=== PATIENT | male | born 1960 | race Caucasian/White ===

== ENCOUNTER 2018-04-17 13:43 | Inpatient (IN) | payer MEDICAID ==
[~2018-04-17] VITALS: Ht 172.7 cm; Wt 146.7 kg
[2018-04-17] MEDS ORDERED: ONDANSETRON HCL 4 MG/2 ML VIAL IV ONE (14:30)
[2018-04-17] MEDS ORDERED: MORPHINE SULFATE 4 MG/ML SYR/VIAL IV ONE (14:30)
[2018-04-17] MEDS ORDERED: AZITHROMYCIN 500MG/ 250ML 250 ML IV ONE (16:30)
[2018-04-17] MEDS ORDERED: cefTRIAXone 1GM/10ml IVPUSH 10 ML IV ONE (16:30)
[2018-04-17 16:38] LABS: Alanine Aminotransferase 23 U/L (16-61); Albumin 3.1 g/dL (3.4-5.0); Anion Gap 7 (5-15); Aspartate Aminotransferase 28 U/L (15-37); BUN/Creatinine Ratio 22.6; Basophils # (auto) 0 uL; Blood Urea Nitrogen 26 mg/dL (7-18); Calcium 8.2 mg/dL (8.5-10.1); Carbon Dioxide 28 mmol/L (21-32); Chloride 105 mmol/L (98-107); GFR African American 84 mL/min; GFR Non-African American 69 mL/min; Glucose 81 mg/dL (74-106); Hemoglobin 11.2 g/dL (13.5-17.5); Lymphocytes # (auto) 0.5 uL; Mean Corpuscular Hemoglobin 23.3 pg (28.0-32.0); Monocytes # (auto) 0.5 uL; Neutrophils # (auto) 2.4 uL; Potassium 3.7 mmol/L (3.5-5.1); Sodium 140 mmol/L (136-145); White Blood Cell 3.5 10^3/uL (4.4-10.8)
[2018-04-17 16:40] LABS: Basophils % (auto) 1.1 % (0.0-2.0); Eosinophils # (auto) 0.1 uL; Eosinophils % (auto) 3.7 % (0.0-7.0); Hematocrit 35.3 % (41.0-53.0); Mean Corpuscular Hgb Conc. 31.6 g/dL (32.0-36.0); Mean Corpuscular Volume 73.5 fL (80.0-100.0); Monocytes % (auto) 13.9 % (0.0-12.0); Neutrophils % (auto) 68.3 % (37.0-80.0); Platelet Count (auto) 177 10^3/uL (140-450)
[2018-04-17 16:41] LABS: Alkaline Phosphatase 252 U/L (45-117); Bilirubin, Total 1.3 mg/dL (0.2-1.0)
[2018-04-17] MEDS ORDERED: ONDANSETRON HCL 4 MG/2 ML VIAL IV PRN (16:45)
[2018-04-17] MEDS ORDERED: LACTULOSE 20Gm/30ML SOLN PO PRN (16:45)
[2018-04-17] MEDS ORDERED: LORazepam 0.5 MG TAB PO PRN (16:45)
[2018-04-17] MEDS ORDERED: MORPHINE SULFATE 4 MG/ML SYR/VIAL IV PRN ×2 (16:45)
[2018-04-17] MEDS ORDERED: NITROGLYCERIN 0.4 MG SL TAB SL PRN (16:45)
[2018-04-17] MEDS ORDERED: ACETAMINOPHEN 500 MG TAB PO PRN (16:45)
[2018-04-17 16:55] LABS: Red Cell Distribution Width 21.3 % (11.8-14.3)
[2018-04-17 17:16] LABS: INR 1.19 (0.9-1.15); Partial Thromboplastin Time 28.2 sec (23.78-33.04); Prothrombin Time 12.6 sec (9.27-12.13)
[2018-04-17] MEDS ORDERED: IPRATROPIUM BROM 0.5 MG/2.5ML INH SOL NEB SCH (18:00)
[2018-04-17] MEDS ORDERED: ALBUTEROL SULF 2.5 MG/0.5ML(0.5%) NEB SOLN NEB SCH (18:00)
[2018-04-17 19:50] VITALS: BP 122/74
[2018-04-17 21:00] VITALS: BP 110/67
[2018-04-17] MEDS ORDERED: POTA10TA51 PO (21:09)
[2018-04-17] MEDS ORDERED: FURO40TA PO (21:09)
[2018-04-17 21:23] VITALS: BP 106/52
[2018-04-17] MEDS: FUROSEMIDE 40 MG/4 ML VIAL IV SCH (21:37)
[2018-04-17] MEDS: CARVEDILOL 3.125 MG TAB PO SCH (21:38)
[2018-04-17] MEDS: CLINDAMYCIN 600MG IV 50 ML IV SCH (21:38)
[2018-04-17] MEDS: ENOXAPARIN SOD 120 MG/0.8 ML SYRINGE SC SCH (21:38)
[2018-04-17] MEDS: SODIUM CHLOR 0.9% PF (SALINE LOCK) 10ML VIAL/SYR IV SCH (21:38)
[2018-04-17] MEDS ORDERED: SODIUM CHLOR 0.9% PF (SALINE LOCK) 10ML VIAL/SYR IV SCH (22:00)
[2018-04-17] MEDS: HYDROcodone-ACET 5/325MG TAB PO PRN (23:00)
[2018-04-18] MEDS ORDERED: INFLUENZA QUAD 2018-2019 0.5 ML SYRG IM ONE (01:45)
[2018-04-18] MEDS: ALBUTEROL SULF 2.5 MG/0.5ML(0.5%) NEB SOLN NEB PRN ×2 (04:13→10:05)
[2018-04-18 05:02] VITALS: BP 116/68
[2018-04-18] MEDS: CLINDAMYCIN 600MG IV 50 ML IV SCH ×3 (05:41→21:38)
[2018-04-18] MEDS: FUROSEMIDE 40 MG/4 ML VIAL IV SCH ×2 (05:42→17:49)
[2018-04-18] MEDS: SODIUM CHLOR 0.9% PF (SALINE LOCK) 10ML VIAL/SYR IV SCH ×3 (05:42→21:39)
[2018-04-18] MEDS: HYDROcodone-ACET 5/325MG TAB PO PRN ×3 (05:42→20:04)
[2018-04-18 07:16] LABS: Cholesterol 73 mg/dL (< 200); HDL Cholesterol 43 mg/dL (40-59); LDL Cholesterol 38 mg/dL (< 100); Triglycerides 36 mg/dL (< 150)
[2018-04-18 08:00] VITALS: BP 103/63
[2018-04-18 09:06] VITALS: BP 103/63
[2018-04-18] MEDS: ENOXAPARIN SOD 120 MG/0.8 ML SYRINGE SC SCH ×2 (09:32→21:39)
[2018-04-18] MEDS: LEVOFLOXACIN 500MG 100 ML IV SCH (09:32)
[2018-04-18] MEDS: ASPirin 81 mg TAB PO SCH (09:33)
[2018-04-18] MEDS: PANTOPRAZOLE 40 MG TAB PO SCH (09:33)
[2018-04-18] MEDS: SPIRONOLACTONE 25 MG TAB PO SCH (09:33)
[2018-04-18] MEDS: CARVEDILOL 3.125 MG TAB PO SCH ×2 (09:34→21:39)
[2018-04-18] MEDS: ENALAPRIL MALEATE 2.5 MG TAB PO SCH (09:35)
[2018-04-18] MEDS: POTASSIUM CHL 20 Meq TABLET PO SCH (09:35)
[2018-04-18 09:58] LABS: Urine WBC None Seen /hpf (0 - 3)
[2018-04-18] MEDS ORDERED: FUROSEMIDE 40 MG/4 ML VIAL IV SCH (10:00)
[2018-04-18] MEDS ORDERED: ENOXAPARIN SOD 40 MG/0.4 ML SYRINGE SC SCH (10:00)
[2018-04-18 10:16] LABS: Urine Bacteria FEW /hpf (None Seen); Urine Blood Negative /uL (Negative); Urine Hyaline Cast MANY /lpf (0 - 2); Urine Mucus FEW (None Seen); Urine Specific Gravity 1.008 (1.001-1.035)
[2018-04-18] MEDS ORDERED: OPTISON 3ml Vial for INJ IV ONE (10:52)
[2018-04-18 13:18] VITALS: BP 110/67
[2018-04-18] MEDS ORDERED: NICOTINE 21MG/24 HR TOPICAL PATCH TD ONE (16:00)
[2018-04-18 17:13] VITALS: BP 97/56
[2018-04-18] MEDS: ASCORBIC ACID 500 MG TAB PO SCH (21:39)
[2018-04-18 22:00] VITALS: BP 114/74
[2018-04-19] MEDS: TEMAZEPAM 15 MG CAP PO PRN (01:00)
[2018-04-19 05:00] VITALS: BP 115/68
[2018-04-19] MEDS: CLINDAMYCIN 600MG IV 50 ML IV SCH ×3 (05:42→22:21)
[2018-04-19] MEDS: FUROSEMIDE 40 MG/4 ML VIAL IV SCH ×2 (05:42→18:06)
[2018-04-19] MEDS: SODIUM CHLOR 0.9% PF (SALINE LOCK) 10ML VIAL/SYR IV SCH ×3 (05:42→22:21)
[2018-04-19 07:08] LABS: Eosinophils # (auto) 0.2 uL; Hematocrit 34.1 % (41.0-53.0); Monocytes # (auto) 0.6 uL; Neutrophils # (auto) 1.7 uL
[2018-04-19 07:16] LABS: Basophils # (auto) 0.1 uL; Basophils % (auto) 1.7 % (0.0-2.0); Eosinophils % (auto) 6.3 % (0.0-7.0); Hemoglobin 10.7 g/dL (13.5-17.5); Lymphocytes # (auto) 0.6 uL; Lymphocytes % (auto) 18.1 % (10.0-50.0); Mean Corpuscular Hemoglobin 22.9 pg (28.0-32.0); Mean Corpuscular Hgb Conc. 31.3 g/dL (32.0-36.0); Mean Corpuscular Volume 73.2 fL (80.0-100.0); Neutrophils % (auto) 54.5 % (37.0-80.0); Nucleated Red Blood Cells % 0.4 %; Platelet Count (auto) 163 10^3/uL (140-450); Red Blood Cells 4.65 10^6/uL (4.5-5.90); White Blood Cell 3.1 10^3/uL (4.4-10.8)
[2018-04-19 07:20] LABS: Albumin 2.9 g/dL (3.4-5.0); BUN/Creatinine Ratio 22.7; Calcium 7.9 mg/dL (8.5-10.1); Magnesium 2.2 mg/dL (1.6-2.6); Potassium 4.1 mmol/L (3.5-5.1)
[2018-04-19 07:23] LABS: Total Protein 7.7 g/dL (6.4-8.2)
[2018-04-19 07:25] LABS: Monocytes % (auto) 19.4 % (0.0-12.0); Red Cell Distribution Width 21.4 % (11.8-14.3)
[2018-04-19 08:00] VITALS: BP 110/72
[2018-04-19 08:14] VITALS: BP 110/72
[2018-04-19] MEDS: PANTOPRAZOLE 40 MG TAB PO SCH (10:06)
[2018-04-19] MEDS: CARVEDILOL 3.125 MG TAB PO SCH ×2 (10:12→22:00)
[2018-04-19] MEDS: ASPirin 81 mg TAB PO SCH (10:12)
[2018-04-19] MEDS: ENALAPRIL MALEATE 2.5 MG TAB PO SCH (10:13)
[2018-04-19] MEDS: MULTIPLE VITAMINS W/ MINERALS TAB PO SCH (10:13)
[2018-04-19] MEDS: ASCORBIC ACID 500 MG TAB PO SCH ×2 (10:13→22:21)
[2018-04-19] MEDS: ENOXAPARIN SOD 120 MG/0.8 ML SYRINGE SC SCH ×2 (10:14→22:22)
[2018-04-19] MEDS: NICOTINE 21MG/24 HR TOPICAL PATCH TD SCH (10:15)
[2018-04-19] MEDS: POTASSIUM CHL 20 Meq TABLET PO SCH (10:18)
[2018-04-19] MEDS: SPIRONOLACTONE 25 MG TAB PO SCH (10:18)
[2018-04-19] MEDS: LEVOFLOXACIN 500MG 100 ML IV SCH (10:22)
[2018-04-19] MEDS: ALBUTEROL SULF 2.5 MG/0.5ML(0.5%) NEB SOLN NEB PRN ×3 (10:49→22:30)
[2018-04-19 12:06] VITALS: BP 107/71
[2018-04-19 16:38] VITALS: BP 100/56
[2018-04-19] MEDS ORDERED: IOHEXOL 350 MG/ML 100ML IJ ONE (16:44)
[2018-04-19] MEDS: HYDROcodone-ACET 5/325MG TAB PO PRN (19:59)
[2018-04-19 21:43] VITALS: BP 89/63
[2018-04-20] MEDS: TEMAZEPAM 15 MG CAP PO PRN (01:39)
[2018-04-20] MEDS: ALBUTEROL SULF 2.5 MG/0.5ML(0.5%) NEB SOLN NEB PRN ×3 (03:41→19:26)
[2018-04-20 04:38] VITALS: BP 97/51
[2018-04-20] MEDS: CLINDAMYCIN 600MG IV 50 ML IV SCH ×3 (06:16→22:25)
[2018-04-20] MEDS: SODIUM CHLOR 0.9% PF (SALINE LOCK) 10ML VIAL/SYR IV SCH ×3 (06:16→22:26)
[2018-04-20 08:00] VITALS: BP 102/64
[2018-04-20] MEDS: FUROSEMIDE 40 MG/4 ML VIAL IV SCH ×2 (08:08→18:32)
[2018-04-20 08:53] VITALS: BP 102/64
[2018-04-20] MEDS: LEVOFLOXACIN 500MG 100 ML IV SCH (10:23)
[2018-04-20] MEDS: SPIRONOLACTONE 25 MG TAB PO SCH (10:23)
[2018-04-20] MEDS: ASPirin 81 mg TAB PO SCH (10:23)
[2018-04-20] MEDS: CARVEDILOL 3.125 MG TAB PO SCH ×2 (10:24→22:00)
[2018-04-20] MEDS: MULTIPLE VITAMINS W/ MINERALS TAB PO SCH (10:24)
[2018-04-20] MEDS: POTASSIUM CHL 20 Meq TABLET PO SCH (10:24)
[2018-04-20] MEDS: PANTOPRAZOLE 40 MG TAB PO SCH (10:25)
[2018-04-20] MEDS: ENALAPRIL MALEATE 2.5 MG TAB PO SCH (10:25)
[2018-04-20] MEDS: ENOXAPARIN SOD 120 MG/0.8 ML SYRINGE SC SCH ×2 (10:25→22:27)
[2018-04-20] MEDS: ASCORBIC ACID 500 MG TAB PO SCH ×2 (10:25→22:27)
[2018-04-20] MEDS: NICOTINE 21MG/24 HR TOPICAL PATCH TD SCH (10:26)
[2018-04-20] MEDS: HYDROcodone-ACET 5/325MG TAB PO PRN ×2 (10:27→20:53)
[2018-04-20 13:00] VITALS: BP 91/57
[2018-04-20 17:00] VITALS: BP 105/73
[2018-04-20 21:42] VITALS: BP 108/60
[2018-04-20] MEDS: DAKINS QUARTER STR 0.125% (NaHypochlorite) 473 ML TOPICAL SOL TOP SCH (22:00)
[2018-04-20] MEDS: CLOTRIMAZOLE 1 % CREAM 15GM TOP SCH (22:27)
[2018-04-21] MEDS: ALBUTEROL SULF 2.5 MG/0.5ML(0.5%) NEB SOLN NEB PRN ×3 (00:06→20:26)
[2018-04-21 05:00] VITALS: BP 105/59
[2018-04-21] MEDS: CLINDAMYCIN 600MG IV 50 ML IV SCH ×3 (06:13→23:23)
[2018-04-21] MEDS: FUROSEMIDE 40 MG/4 ML VIAL IV SCH (06:14)
[2018-04-21] MEDS: SODIUM CHLOR 0.9% PF (SALINE LOCK) 10ML VIAL/SYR IV SCH ×3 (06:14→23:23)
[2018-04-21 08:00] VITALS: BP 119/69
[2018-04-21] MEDS ORDERED: ADENOSINE 128 MG in GIVE UN-DILUTED 0 ML IV ONE (08:15)
[2018-04-21 08:46] VITALS: BP 119/69
[2018-04-21] MEDS: NICOTINE 21MG/24 HR TOPICAL PATCH TD SCH (12:12)
[2018-04-21] MEDS: LEVOFLOXACIN 500MG 100 ML IV SCH (12:12)
[2018-04-21] MEDS: ASPirin 81 mg TAB PO SCH (12:13)
[2018-04-21] MEDS: MULTIPLE VITAMINS W/ MINERALS TAB PO SCH (12:13)
[2018-04-21] MEDS: PANTOPRAZOLE 40 MG TAB PO SCH (12:13)
[2018-04-21] MEDS: ASCORBIC ACID 500 MG TAB PO SCH ×2 (12:14→23:23)
[2018-04-21] MEDS: POTASSIUM CHL 20 Meq TABLET PO SCH (12:14)
[2018-04-21 15:14] LABS: BUN/Creatinine Ratio 25.6; Calcium 7.7 mg/dL (8.5-10.1); Potassium 4.3 mmol/L (3.5-5.1)
[2018-04-21 16:31] VITALS: BP 101/60
[2018-04-21] MEDS: FUROSEMIDE 40 MG TAB PO SCH (18:00)
[2018-04-21] MEDS: POVIDONE IODINE 10 % TOPICAL OINT 30GM TOP SCH (18:50)
[2018-04-21] MEDS: DAKINS QUARTER STR 0.125% (NaHypochlorite) 473 ML TOPICAL SOL TOP SCH ×2 (18:51→23:24)
[2018-04-21] MEDS: CLOTRIMAZOLE 1 % CREAM 15GM TOP SCH ×2 (18:51→23:24)
[2018-04-21 22:00] VITALS: BP 110/57
[2018-04-21] MEDS: TEMAZEPAM 15 MG CAP PO PRN (23:33)
[2018-04-22] MEDS: ALBUTEROL SULF 2.5 MG/0.5ML(0.5%) NEB SOLN NEB PRN ×3 (02:13→22:14)
[2018-04-22] MEDS: HYDROcodone-ACET 5/325MG TAB PO PRN ×3 (04:47→20:23)
[2018-04-22 05:35] VITALS: BP 122/67
[2018-04-22] MEDS: SODIUM CHLOR 0.9% PF (SALINE LOCK) 10ML VIAL/SYR IV SCH ×3 (05:58→21:31)
[2018-04-22] MEDS: CLINDAMYCIN 600MG IV 50 ML IV SCH (05:58)
[2018-04-22] MEDS: FUROSEMIDE 40 MG TAB PO SCH ×2 (05:59→18:06)
[2018-04-22 06:12] LABS: Mean Corpuscular Hemoglobin 23.4 pg (28.0-32.0); White Blood Cell 3.6 10^3/uL (4.4-10.8)
[2018-04-22 06:14] LABS: Hematocrit 30.8 % (41.0-53.0); Hemoglobin 9.9 g/dL (13.5-17.5); Mean Corpuscular Volume 73.3 fL (80.0-100.0); Platelet Count (auto) 155 10^3/uL (140-450); Red Blood Cells 4.21 10^6/uL (4.5-5.90)
[2018-04-22 06:20] LABS: Red Cell Distribution Width 21.2 % (11.8-14.3)
[2018-04-22 06:22] LABS: Band Neutrophils % (manual) 0; Basophils % (manual) 0 (0.0-2.0); Blast Cells 0; Metamyelocytes % 0; Myelocytes % 0; Promyelocytes % 0; Reactive Lymphocytes 0
[2018-04-22 06:25] LABS: BUN/Creatinine Ratio 26.9; Calcium 8.3 mg/dL (8.5-10.1); Potassium 4.2 mmol/L (3.5-5.1)
[2018-04-22 06:55] LABS: Eosinophils % (manual) 3 (0-7); Lymphocytes % (manual) 11 (10.0-50.0); Monocytes % (manual) 15 (0-12)
[2018-04-22] MEDS ORDERED: IOHEXOL 350 MG/ML 100ML IJ ONE (07:56)
[2018-04-22 08:29] VITALS: BP 110/66
[2018-04-22] MEDS: ASCORBIC ACID 500 MG TAB PO SCH ×2 (10:00→21:34)
[2018-04-22] MEDS: MULTIPLE VITAMINS W/ MINERALS TAB PO SCH (10:37)
[2018-04-22] MEDS: POTASSIUM CHL 20 Meq TABLET PO SCH (10:37)
[2018-04-22] MEDS: LEVOFLOXACIN 500MG 100 ML IV SCH (10:37)
[2018-04-22] MEDS: ENOXAPARIN SOD 40 MG/0.4 ML SYRINGE SC SCH (10:37)
[2018-04-22] MEDS: NICOTINE 21MG/24 HR TOPICAL PATCH TD SCH (10:37)
[2018-04-22] MEDS: PANTOPRAZOLE 40 MG TAB PO SCH (10:37)
[2018-04-22] MEDS: ASPirin 81 mg TAB PO SCH (10:38)
[2018-04-22] MEDS: DAKINS QUARTER STR 0.125% (NaHypochlorite) 473 ML TOPICAL SOL TOP SCH ×2 (10:38→21:35)
[2018-04-22] MEDS: POVIDONE IODINE 10 % TOPICAL OINT 30GM TOP SCH (10:38)
[2018-04-22] MEDS: CLOTRIMAZOLE 1 % CREAM 15GM TOP SCH ×2 (10:38→21:35)
[2018-04-22 12:49] VITALS: BP 104/61
[2018-04-22] MEDS: CLINDAMYCIN HCL 150 MG CAP PO SCH ×2 (14:42→21:34)
[2018-04-22 15:44] LABS: % Iron Saturation 13.5 % (20-55)
[2018-04-22 16:35] VITALS: BP 102/60
[2018-04-22] MEDS: TEMAZEPAM 15 MG CAP PO PRN (21:37)
[2018-04-22 22:00] VITALS: BP 109/72
[2018-04-23 05:00] VITALS: BP 117/72
[2018-04-23] MEDS: SODIUM CHLOR 0.9% PF (SALINE LOCK) 10ML VIAL/SYR IV SCH ×3 (05:24→22:02)
[2018-04-23] MEDS: CLINDAMYCIN HCL 150 MG CAP PO SCH ×2 (05:25→14:00)
[2018-04-23] MEDS: FUROSEMIDE 40 MG TAB PO SCH ×2 (05:25→17:31)
[2018-04-23 07:09] LABS: BUN/Creatinine Ratio 26.5; Calcium 8.2 mg/dL (8.5-10.1)
[2018-04-23 07:20] LABS: Basophils # (auto) 0 uL; Basophils % (auto) 0.9 % (0.0-2.0); Eosinophils # (auto) 0.4 uL; Eosinophils % (auto) 9.4 % (0.0-7.0); Hematocrit 31.1 % (41.0-53.0); Hemoglobin 9.7 g/dL (13.5-17.5); Lymphocytes # (auto) 0.4 uL; Lymphocytes % (auto) 11.2 % (10.0-50.0); Mean Corpuscular Hemoglobin 22.7 pg (28.0-32.0); Mean Corpuscular Hgb Conc. 31.1 g/dL (32.0-36.0); Monocytes # (auto) 0.6 uL; Monocytes % (auto) 15.7 % (0.0-12.0); Neutrophils # (auto) 2.4 uL; Neutrophils % (auto) 62.8 % (37.0-80.0); Nucleated Red Blood Cells % 0.2 %; Platelet Count (auto) 145 10^3/uL (140-450); Red Blood Cells 4.26 10^6/uL (4.5-5.90); White Blood Cell 3.9 10^3/uL (4.4-10.8)
[2018-04-23] MEDS ORDERED: LIDOCAINE 2%HCL (LOCAL ANESTH.) INJ 10ml MDV ONE (07:30)
[2018-04-23] MEDS ORDERED: IOHEXOL 350 MG/ML 100ML IJ ONE (07:30)
[2018-04-23 07:46] LABS: Red Cell Distribution Width 21.5 % (11.8-14.3)
[2018-04-23] MEDS ORDERED: ANGIOMAX 250 MG VIAL IV ONE ×2 (08:32→08:50)
[2018-04-23] MEDS ORDERED: SODIUM CHL 0.9% 50 ML ONE ×2 (08:33→08:51)
[2018-04-23] MEDS ORDERED: MIDAZOLAM HCL 1MG/1ML-2 ML VIAL ONE (08:33)
[2018-04-23] MEDS ORDERED: fentaNYL CITRATE 100 MCG/2 ML VL ONE (08:33)
[2018-04-23] MEDS ORDERED: ASPirin 325 MG TAB ONE (09:12)
[2018-04-23] MEDS ORDERED: CLOPIDOGREL 300 MG TAB ONE (09:12)
[2018-04-23] MEDS: ENOXAPARIN SOD 40 MG/0.4 ML SYRINGE SC SCH (10:00)
[2018-04-23] MEDS: CLOTRIMAZOLE 1 % CREAM 15GM TOP SCH ×2 (10:00→22:02)
[2018-04-23] MEDS: NICOTINE 21MG/24 HR TOPICAL PATCH TD SCH (10:00)
[2018-04-23] MEDS: DAKINS QUARTER STR 0.125% (NaHypochlorite) 473 ML TOPICAL SOL TOP SCH ×2 (10:00→22:00)
[2018-04-23] MEDS: PANTOPRAZOLE 40 MG TAB PO SCH (10:00)
[2018-04-23] MEDS: MULTIPLE VITAMINS W/ MINERALS TAB PO SCH (10:00)
[2018-04-23] MEDS: ASCORBIC ACID 500 MG TAB PO SCH ×2 (10:00→22:05)
[2018-04-23] MEDS: POVIDONE IODINE 10 % TOPICAL OINT 30GM TOP SCH (10:00)
[2018-04-23] MEDS: LEVOFLOXACIN 500 MG TAB PO SCH (10:00)
[2018-04-23] MEDS: POTASSIUM CHL 20 Meq TABLET PO SCH (10:00)
[2018-04-23] MEDS: ASPirin 81 mg TAB PO SCH (10:00)
[2018-04-23] MEDS: HYDROcodone-ACET 5/325MG TAB PO PRN ×2 (10:55→16:48)
[2018-04-23] MEDS ORDERED: GELATIN 1 SPONGE SIZE 100 TOP ONE (11:20)
[2018-04-23] MEDS ORDERED: CLOP75TA28 PO (13:15)
[2018-04-23] MEDS ORDERED: ASP81EC PO (13:15)
[2018-04-23] MEDS ORDERED: AMPI500C8 PO (13:15)
[2018-04-23] MEDS ORDERED: NIC21P TOP (13:15)
[2018-04-23] MEDS ORDERED: PANT40T PO (13:15)
[2018-04-23 16:37] VITALS: BP 110/72
[2018-04-23] MEDS: AMPICILLIN 500 MG CAP PO SCH ×2 (17:31→23:49)
[2018-04-23 22:00] VITALS: BP 104/57
[2018-04-23] MEDS: TEMAZEPAM 15 MG CAP PO PRN (22:05)
[2018-04-23] MEDS: ALBUTEROL SULF 2.5 MG/0.5ML(0.5%) NEB SOLN NEB PRN (22:20)
[2018-04-24] VITALS (7 sets, daily range): BP systolic 92–115; BP diastolic 52–72
[2018-04-24] MEDS: AMPICILLIN 500 MG CAP PO SCH (05:13)
[2018-04-24] MEDS: FUROSEMIDE 40 MG TAB PO SCH ×2 (05:13→17:23)
[2018-04-24] MEDS: SODIUM CHLOR 0.9% PF (SALINE LOCK) 10ML VIAL/SYR IV SCH ×3 (05:13→22:23)
[2018-04-24] MEDS: HYDROcodone-ACET 5/325MG TAB PO PRN ×2 (05:32→18:05)
[2018-04-24 07:31] LABS: Basophils # (auto) 0 uL; Hemoglobin 9.3 g/dL (13.5-17.5); White Blood Cell 3.7 10^3/uL (4.4-10.8)
[2018-04-24 07:34] LABS: Basophils % (auto) 0.7 % (0.0-2.0); Eosinophils # (auto) 0.3 uL; Eosinophils % (auto) 7.1 % (0.0-7.0); Hematocrit 29.7 % (41.0-53.0); Lymphocytes # (auto) 0.4 uL; Lymphocytes % (auto) 9.6 % (10.0-50.0); Mean Corpuscular Hemoglobin 22.8 pg (28.0-32.0); Mean Corpuscular Hgb Conc. 31.4 g/dL (32.0-36.0); Mean Corpuscular Volume 72.8 fL (80.0-100.0); Monocytes # (auto) 0.6 uL; Monocytes % (auto) 15.3 % (0.0-12.0); Neutrophils # (auto) 2.5 uL; Neutrophils % (auto) 67.3 % (37.0-80.0); Platelet Count (auto) 134 10^3/uL (140-450); Red Blood Cells 4.08 10^6/uL (4.5-5.90)
[2018-04-24 07:36] LABS: Red Cell Distribution Width 21.2 % (11.8-14.3)
[2018-04-24 07:47] LABS: Calcium 7.9 mg/dL (8.5-10.1); Potassium 4.1 mmol/L (3.5-5.1)
[2018-04-24 07:49] LABS: BUN/Creatinine Ratio 25.5
[2018-04-24] MEDS: DAKINS QUARTER STR 0.125% (NaHypochlorite) 473 ML TOPICAL SOL TOP SCH ×2 (10:00→22:00)
[2018-04-24] MEDS: ENOXAPARIN SOD 40 MG/0.4 ML SYRINGE SC SCH (10:00)
[2018-04-24] MEDS: CLOPIDOGREL BISULFATE 75 MG TAB PO SCH (10:00)
[2018-04-24] MEDS: CLOTRIMAZOLE 1 % CREAM 15GM TOP SCH ×2 (10:00→22:24)
[2018-04-24] MEDS: POVIDONE IODINE 10 % TOPICAL OINT 30GM TOP SCH (10:00)
[2018-04-24] MEDS: ASPirin 81 mg TAB PO SCH (10:00)
[2018-04-24] MEDS: MULTIPLE VITAMINS W/ MINERALS TAB PO SCH (11:02)
[2018-04-24] MEDS: PANTOPRAZOLE 40 MG TAB PO SCH (11:02)
[2018-04-24] MEDS: ASCORBIC ACID 500 MG TAB PO SCH ×2 (11:03→22:00)
[2018-04-24] MEDS: POTASSIUM CHL 20 Meq TABLET PO SCH (11:03)
[2018-04-24] MEDS: NICOTINE 21MG/24 HR TOPICAL PATCH TD SCH (11:03)
[2018-04-24] MEDS: LEVOFLOXACIN 500 MG TAB PO SCH (11:03)
[2018-04-24] MEDS ORDERED: AMOX-263 PO (12:30)
[2018-04-24] MEDS ORDERED: LEVO500T21 PO (12:30)
[2018-04-24] MEDS ORDERED: AMOXICILLIN/CLAVUL 875 MG TAB PO ONE (12:30)
[2018-04-24] MEDS ORDERED: SACC250C PO (12:30)
[2018-04-24] MEDS ORDERED: LIDOCAINE 1% INJ PF 5ML AMP ONE ×2 (13:26→13:54)
[2018-04-24] MEDS ORDERED: ceFAZolin 1GM/50ML 50 ML IV ONE (13:28)
[2018-04-24] MEDS ORDERED: MIDAZOLAM HCL 1MG/1ML-2 ML VIAL ONE (13:52)
[2018-04-24] MEDS ORDERED: PROPOFOL 10 MG/ML 20 ML IV ONE (13:54)
[2018-04-24] MEDS ORDERED: fentaNYL CITRATE 100 MCG/2 ML VL ONE (13:57)
[2018-04-24] MEDS ORDERED: ONDANSETRON HCL 4 MG/2 ML VIAL IV ONE (14:30)
[2018-04-24] MEDS ORDERED: NALOXONE HCL 0.4 MG/ML VIAL IV PRN (14:30)
[2018-04-24] MEDS ORDERED: ACCU-CHEK COMFORT CURVE STRIP VI ONE (14:30)
[2018-04-24] MEDS ORDERED: MORPHINE SULFATE 4 MG/ML SYR/VIAL IV PRN (14:30)
[2018-04-24] MEDS: ALBUTEROL SULF 2.5 MG/0.5ML(0.5%) NEB SOLN NEB PRN (19:34)
[2018-04-24] MEDS: AMOXICILLIN/CLAVUL 875 MG TAB PO SCH (22:23)
[2018-04-25] MEDS: HYDROcodone-ACET 5/325MG TAB PO PRN (00:34)
[2018-04-25] MEDS: TEMAZEPAM 15 MG CAP PO PRN (00:35)
[2018-04-25] MEDS: ALBUTEROL SULF 2.5 MG/0.5ML(0.5%) NEB SOLN NEB PRN (00:52)
[2018-04-25 05:00] VITALS: BP 116/73
[2018-04-25 05:25] LABS: Hemoglobin 9.3 g/dL (13.5-17.5)
[2018-04-25 05:27] LABS: Hematocrit 29.5 % (41.0-53.0)
[2018-04-25] MEDS: SODIUM CHLOR 0.9% PF (SALINE LOCK) 10ML VIAL/SYR IV SCH ×2 (06:23→14:00)
[2018-04-25] MEDS: FUROSEMIDE 40 MG TAB PO SCH (06:25)
[2018-04-25 07:30] VITALS: BP 115/69
[2018-04-25 09:00] VITALS: BP 115/69
[2018-04-25] MEDS: DAKINS QUARTER STR 0.125% (NaHypochlorite) 473 ML TOPICAL SOL TOP SCH (10:00)
[2018-04-25] MEDS: CLOTRIMAZOLE 1 % CREAM 15GM TOP SCH (10:00)
[2018-04-25] MEDS: POVIDONE IODINE 10 % TOPICAL OINT 30GM TOP SCH (10:00)
[2018-04-25] MEDS: CLOPIDOGREL BISULFATE 75 MG TAB PO SCH (10:44)
[2018-04-25] MEDS: ASPirin 81 mg TAB PO SCH (10:45)
[2018-04-25] MEDS: AMOXICILLIN/CLAVUL 875 MG TAB PO SCH (10:45)
[2018-04-25] MEDS: MULTIPLE VITAMINS W/ MINERALS TAB PO SCH (10:45)
[2018-04-25] MEDS: LEVOFLOXACIN 500 MG TAB PO SCH (10:45)
[2018-04-25] MEDS: POTASSIUM CHL 20 Meq TABLET PO SCH (10:45)
[2018-04-25] MEDS: PANTOPRAZOLE 40 MG TAB PO SCH (10:45)
[2018-04-25] MEDS: ENOXAPARIN SOD 40 MG/0.4 ML SYRINGE SC SCH (10:45)
[2018-04-25] MEDS: ASCORBIC ACID 500 MG TAB PO SCH (10:45)
[2018-04-25] MEDS: NICOTINE 21MG/24 HR TOPICAL PATCH TD SCH (10:46)
[2018-04-25 13:00] VITALS: BP 90/58
[2018-04-25 13:55] VITALS: BP 115/69
== END 2018-04-25 16:08 | disposition home health service (06) | DRG 710 ==
LOC: ER 13:46 → TELE 13:47 → TELE-CENTR 19:38
PROVIDERS: ADMIT Internal Medicine; ATTEND Internal Medicine
PROC: 047D34Z Dilation of Left Common Iliac Artery with Drug-eluting Intraluminal Device, Percutaneous Approach (ICD-10-PCS; principal; 2018-04-23)
PROC: B41G1ZZ Fluoroscopy of Left Lower Extremity Arteries using Low Osmolar Contrast (ICD-10-PCS; 2018-04-23)
PROC: 0HRMXK3 Replacement of Right Foot Skin with Nonautologous Tissue Substitute, Full Thickness, External Approach (ICD-10-PCS; 2018-04-24)
PROC: 0HRLXK3 Replacement of Left Lower Leg Skin with Nonautologous Tissue Substitute, Full Thickness, External Approach (ICD-10-PCS; 2018-04-24)
DX: A41.9 Sepsis, unspecified organism (principal); J96.00 Acute respiratory failure, unspecified whether with hypoxia or hypercapnia; J69.0 Pneumonitis due to inhalation of food and vomit; I50.33 Acute on chronic diastolic (congestive) heart failure; E44.0 Moderate protein-calorie malnutrition; E66.01 Morbid (severe) obesity due to excess calories; I31.9 Disease of pericardium, unspecified; R18.8 Other ascites; I87.2 Venous insufficiency (chronic) (peripheral); I70.8 Atherosclerosis of other arteries; F17.200 Nicotine dependence, unspecified, uncomplicated; I25.10 Atherosclerotic heart disease of native coronary artery without angina pectoris; I70.0 Atherosclerosis of aorta; I73.9 Peripheral vascular disease, unspecified; I87.8 Other specified disorders of veins; I89.0 Lymphedema, not elsewhere classified; J44.9 Chronic obstructive pulmonary disease, unspecified; K80.20 Calculus of gallbladder without cholecystitis without obstruction; L97.519 Non-pressure chronic ulcer of other part of right foot with unspecified severity; L97.529 Non-pressure chronic ulcer of other part of left foot with unspecified severity; B35.1 Tinea unguium; N43.3 Hydrocele, unspecified; N50.89 Other specified disorders of the male genital organs; Z79.02 Long term (current) use of antithrombotics/antiplatelets; Z79.82 Long term (current) use of aspirin; Z80.0 Family history of malignant neoplasm of digestive organs; Z82.49 Family history of ischemic heart disease and other diseases of the circulatory system; Z98.84 Bariatric surgery status; L03.116 Cellulitis of left lower limb; L03.115 Cellulitis of right lower limb; Z68.42 Body mass index [BMI] 45.0-49.9, adult; Z88.8 Allergy status to other drugs, medicaments and biological substances
CPT/HCPCS: 36415; 37221; 71045; 71275; 74176; 75635; 76870; 80048; 80053; 80061; 81001; 82962; 83540; 83550; 83605; 83735; 83880; 84443; 84484; 85007; 85014; 85018; 85025; 85027; 85379; 85610; 85730; 86850; 86900; 86901; 87040; 87077; 87186; 87205; 87804; 90674; 93005; 93306; 93926; 93970; 94640; 96365; 96375; 99152; A6257; J0153; J0690; J0696; J1956; J2001; J2250; J2405; J2704; J3490; Q9956

== ENCOUNTER 2018-07-30 08:12 | Inpatient (IN) | payer MEDICAID | END 2018-08-15 15:00 | disposition short-term general hospital (02) | LOC: CENTRAL 08-05 10:49 → TELE-CENTR 08-08 04:45 → ER 08:12 → OVERFLOW 12:09 → TELE-CENTR 18:59 | PROC: 30233N1 Transfusion of Nonautologous Red Blood Cells into Peripheral Vein, Percutaneous Approach (ICD-10-PCS; principal; ~2018-07-30) | PROC: B2111ZZ Fluoroscopy of Multiple Coronary Arteries using Low Osmolar Contrast (ICD-10-PCS; ~2018-07-30) | PROC: B2161ZZ Fluoroscopy of Right and Left Heart using Low Osmolar Contrast (ICD-10-PCS; ~2018-07-30) | DX: I50.33 Acute on chronic diastolic (congestive) heart failure (principal); N17.0 Acute kidney failure with tubular necrosis; J10.00 Influenza due to other identified influenza virus with unspecified type of pneumonia; I31.1 Chronic constrictive pericarditis; J10.08 Influenza due to other identified influenza virus with other specified pneumonia; E66.01 Morbid (severe) obesity due to excess calories; J44.0 Chronic obstructive pulmonary disease with (acute) lower respiratory infection; N18.3 Chronic kidney disease, stage 3 (moderate); N36.5 Urethral false passage; I48.91 Unspecified atrial fibrillation; I73.9 Peripheral vascular disease, unspecified; K21.9 Gastro-esophageal reflux disease without esophagitis; J44.9 Chronic obstructive pulmonary disease, unspecified; D63.8 Anemia in other chronic diseases classified elsewhere; I87.2 Venous insufficiency (chronic) (peripheral); R60.1 Generalized edema; S22.41XA Multiple fractures of ribs, right side, initial encounter for closed fracture; Z98.84 Bariatric surgery status; Z68.41 Body mass index [BMI] 40.0-44.9, adult; E87.6 Hypokalemia ==

== ENCOUNTER 2019-11-23 19:02 | Inpatient (IN) | payer MEDICARE ==
[~2019-11-23] VITALS: Ht 172.7 cm; Wt 136.0 kg
[~2019-11-23 19:02] MED LIST: ASP81EC PO; CLOP75TA28 PO; FURO1TAB31 PO; POTA10TA51 PO
[2019-11-23] MEDS ORDERED: SODIUM CHLORIDE 0.9% 1,000 ML IV ONE (19:19)
[2019-11-23] MEDS ORDERED: CLINDAMYCIN 900MG IV 50 ML IV ONE (19:30)
[2019-11-23] MEDS ORDERED: PIPERACILLIN-TAZO 4.5GM 100 ML IV ONE (19:30)
[2019-11-23 20:03] LABS: Urine WBC None Seen /hpf (0 - 3)
[2019-11-23 20:32] LABS: Hematocrit 34.2 % (41.0-53.0); Hemoglobin 10.7 g/dL (13.5-17.5); Mean Corpuscular Hemoglobin 27.5 pg (28.0-32.0); Mean Corpuscular Hgb Conc. 31.2 g/dL (32.0-36.0); Platelet Count (auto) 157 10^3/uL (140-450); Red Blood Cells 3.88 10^6/uL (4.5-5.90); Red Cell Distribution Width 16.7 % (11.8-14.3); White Blood Cell 3.5 10^3/uL (4.4-10.8)
[2019-11-23 20:37] LABS: Basophils % (manual) 0 (0.0-2.0); Blast Cells 0; Eosinophils % (manual) 0 (0-7); Myelocytes % 0; Promyelocytes % 0; Reactive Lymphocytes 0
[2019-11-23 20:39] LABS: INR 1.26 (0.9-1.15); Partial Thromboplastin Time 35.6 sec (23.64-32.05)
[2019-11-23 20:40] LABS: Urine Bacteria NONE SEEN /hpf (None Seen); Urine Blood 2+ /uL (Negative); Urine Hyaline Cast FEW /lpf (0 - 2); Urine Specific Gravity 1.019 (1.001-1.035)
[2019-11-23 20:42] LABS: Anion Gap 12 (5-15); Blood Urea Nitrogen 68 mg/dL (7-18); Calcium 7.5 mg/dL (8.5-10.1); Carbon Dioxide 21 mmol/L (21-32); Chloride 98 mmol/L (98-107); Glucose 59 mg/dL (74-106); Magnesium 2.7 mg/dL (1.6-2.6); Potassium 4.8 mmol/L (3.5-5.1); Sodium 131 mmol/L (136-145)
[2019-11-23 20:45] LABS: Lactic Acid w/Reflex 4.8 mmol/L (0.4-2.0)
[2019-11-23 20:50] LABS: Alanine Aminotransferase 57 U/L (16-61); Alkaline Phosphatase 79 U/L (45-117); Aspartate Aminotransferase 179 U/L (15-37); BUN/Creatinine Ratio 21.4; Bilirubin, Total 1.4 mg/dL (0.2-1.0); GFR African American 26 mL/min; GFR Non-African American 21 mL/min
[2019-11-23 20:56] LABS: CRP High Sensitivity > 19.0 mg/dL (< 0.3)
[2019-11-23] MEDS ORDERED: AMIODARONE HCL 150 MG in D5W 5% 100 ML IV ONE (21:15)
[2019-11-23] MEDS ORDERED: DEXTROSE (50%) 50ML SYRG IV ONE (21:15)
[2019-11-23] MEDS ORDERED: AMIODARONE 450mg/250ml AE 250 ML IV SCH (21:24)
[2019-11-23 21:39] LABS: Band Neutrophils % (manual) 20; Lymphocytes % (manual) 4 (10.0-50.0); Metamyelocytes % 5; Monocytes % (manual) 5 (0-12)
[2019-11-23] MEDS ORDERED: SODIUM CHLORIDE 0.9% 1,000 ML IV SCH ×2 (22:23)
[2019-11-23] MEDS ORDERED: ACETAMINOPHEN 500 MG TAB PO PRN (22:30)
[2019-11-23] MEDS ORDERED: MORPHINE SULF INJ 2 MG/ML SYRINGE 1ML IV PRN (22:30)
[2019-11-23] MEDS ORDERED: ONDANSETRON HCL 4 MG/2 ML VIAL IV PRN (22:30)
[2019-11-23] MEDS ORDERED: ACETAMINOPHEN 325 MG TAB PO PRN (22:30)
[2019-11-23] MEDS ORDERED: NITROGLYCERIN 0.4 MG SL TAB SL PRN (22:30)
[2019-11-23] MEDS ORDERED: ENOXAPARIN SOD 150 MG/1 ML SYRINGE SC SCH (23:00)
[2019-11-24] VITALS (66 sets, daily range): BP systolic 75–142; BP diastolic 20–77
[2019-11-24] MEDS ORDERED: ETOMIDATE (2MG/ML) 20ML VIAL IV ONE ×2 (03:25→03:30)
[2019-11-24] MEDS ORDERED: SUCCINYLCHOLINE CHLORIDE 20 MG/ML 10ML VIAL IV ONE ×2 (03:26→03:30)
[2019-11-24] MEDS ORDERED: NOREPINEPHRINE 8 MG/250ML KIT 250 ML IV SCH (03:28)
[2019-11-24] MEDS ORDERED: NOREPINEPHRINE 8 MG/250ML KIT 250 ML IV ONE (03:30)
[2019-11-24] MEDS ORDERED: MIDAZOLAM DRIP 50 mg/50mL 50 ML IV ONE (03:31)
[2019-11-24] MEDS: MIDAZOLAM DRIP 50 mg/50mL 50 ML IV SCH (03:54)
[2019-11-24] MEDS ORDERED: METOPROLOL TARTRATE 1MG/1ML-5ML VIAL IV ONE ×2 (03:59→04:30)
[2019-11-24] MEDS: AMIODARONE 450mg/250ml AE 250 ML IV SCH ×2 (04:00→17:36)
[2019-11-24 04:50] LABS: Albumin 2.8 g/dL (3.4-5.0); BUN/Creatinine Ratio 18.3; Bilirubin, Total 1.5 mg/dL (0.2-1.0); Calcium 7.2 mg/dL (8.5-10.1); Magnesium 2.4 mg/dL (1.6-2.6); Total Protein 7.8 g/dL (6.4-8.2)
[2019-11-24 04:57] LABS: Potassium 5.6 mmol/L (3.5-5.1)
[2019-11-24] MEDS ORDERED: SODIUM CHLORIDE 0.9% 1,000 ML IV ONE (05:00)
[2019-11-24] MEDS ORDERED: ALBUMIN 5% 250 ML IV ONE (05:00)
[2019-11-24] MEDS ORDERED: LEVOTHYROXINE SODIUM 100 MCG/5 ML INJ IV ONE (05:00)
[2019-11-24] MEDS ORDERED: FUROSEMIDE INJECTION 10 ML ONE (05:08)
[2019-11-24] MEDS: FUROSEMIDE INJECTION 100 MG in D5W 5% 100 ML IV SCH (05:30)
[2019-11-24] MEDS ORDERED: ACETAMINOPHEN 650 mg PER 20 mL UD GT PRN (05:30)
[2019-11-24] MEDS ORDERED: AMIODARONE 450mg/250ml AE 250 ML IV SCH (05:30)
[2019-11-24] MEDS ORDERED: CLINDAMYCIN 300MG IV 50 ML IV SCH (06:00)
[2019-11-24] MEDS ORDERED: CLINDAMYCIN HCL 150 MG CAP PO SCH (06:00)
[2019-11-24] MEDS ORDERED: ALBUTEROL SULF HFA 90MCG INH 200DOSE IN SCH ×2 (06:00)
[2019-11-24] MEDS ORDERED: EPINEPHrine HCL 250 ML IV ONE ×2 (06:03→15:44)
[2019-11-24 06:09] LABS: Hematocrit 30.7 % (41.0-53.0); Hemoglobin 9.8 g/dL (13.5-17.5); Mean Corpuscular Hemoglobin 27.8 pg (28.0-32.0); Mean Corpuscular Hgb Conc. 31.9 g/dL (32.0-36.0); Mean Corpuscular Volume 87.4 fL (80.0-100.0); Platelet Count (auto) 178 10^3/uL (140-450); Red Blood Cells 3.52 10^6/uL (4.5-5.90); Red Cell Distribution Width 16.6 % (11.8-14.3); White Blood Cell 9.6 10^3/uL (4.4-10.8)
[2019-11-24] MEDS: EPINEPHrine HCL INJECTION 4 MG in SODIUM CHL 0.9% 250 ML IV SCH ×2 (06:15→15:45)
[2019-11-24] MEDS: IPRATROPIUM BROM 0.5 MG/2.5ML INH SOL NEB SCH ×3 (06:35→22:05)
[2019-11-24] MEDS: ALBUTEROL SULF 2.5 MG/0.5ML(0.5%) NEB SOLN NEB SCH ×3 (06:35→22:05)
[2019-11-24 06:37] LABS: Basophils % (manual) 0 (0.0-2.0); Blast Cells 0; Eosinophils % (manual) 0 (0-7); Myelocytes % 0; Promyelocytes % 0; Reactive Lymphocytes 0
[2019-11-24] MEDS: NOREPINEPHRINE BITARTRATE 16 MG in SODIUM CHL 0.9% 250 ML IV SCH (07:00)
[2019-11-24 07:17] LABS: Band Neutrophils % (manual) 14; Lymphocytes % (manual) 1 (10.0-50.0); Metamyelocytes % 8; Monocytes % (manual) 3 (0-12)
[2019-11-24] MEDS ORDERED: CARVEDILOL 3.125 MG TAB PO SCH (10:00)
[2019-11-24] MEDS: DOCUSATE SOD 100 MG CAP PO SCH (10:00)
[2019-11-24] MEDS ORDERED: DOXYCYCLINE 100MG/250ML 250 ML IV SCH (10:00)
[2019-11-24] MEDS ORDERED: ENOXAPARIN SOD 150 MG/1 ML SYRINGE SC SCH (10:00)
[2019-11-24] MEDS ORDERED: LISINOPRIL 10 MG TAB PO SCH (10:00)
[2019-11-24] MEDS ORDERED: ENOXAPARIN SOD 100 MG/1 ML SYRINGE SC SCH (10:00)
[2019-11-24] MEDS ORDERED: MEROPENEM 500MG IVPB 50 ML IV ONE (12:00)
[2019-11-24] MEDS: SODIUM ZIRCONIUM CYCL 10 GM PAK GT SCH ×3 (12:00→22:00)
[2019-11-24] MEDS: ZINC SULFATE 220mg CAP or TAB PO SCH (12:06)
[2019-11-24] MEDS: ASPirin 81 mg TAB PO SCH (12:06)
[2019-11-24] MEDS: ASCORBIC ACID 1,000 MG TAB PO SCH (12:07)
[2019-11-24] MEDS: CLOPIDOGREL BISULFATE 75 MG TAB PO SCH (12:07)
[2019-11-24] MEDS: CHOLECALCIFEROL (VITD3) 1,000IU=25mCg TAB PO SCH (12:07)
[2019-11-24] MEDS ORDERED: fentaNYL Drip 2500mCg/250mlNS 250 ML IV ONE (12:26)
[2019-11-24] MEDS ORDERED: PHENYLEPHRINE IV 250 ML IV ONE (12:26)
[2019-11-24] MEDS: PHENYLEPHRINE IV 250 ML IV SCH ×2 (12:30→15:16)
[2019-11-24] MEDS: fentaNYL Drip 2500mCg/250mlNS 250 ML IV SCH (12:30)
[2019-11-24] MEDS ORDERED: LEV50T PO (13:56)
[2019-11-24] MEDS ORDERED: FURO1TAB31 PO (13:56)
[2019-11-24] MEDS ORDERED: POTA8TAB2 PO (13:56)
[2019-11-24] MEDS ORDERED: AMIO200T33 PO (13:56)
[2019-11-24] MEDS ORDERED: TRAZ50TA2 PO (13:57)
[2019-11-24] MEDS ORDERED: APIX5TAB PO (13:58)
[2019-11-24] MEDS: VASOPRESSIN 50 UNITS in D5W 5% 247.5 ML IV SCH (15:15)
[2019-11-24 15:40] LABS: Phosphorus 8.9 mg/dL (2.5-4.90)
[2019-11-24] MEDS: LINEZOLID 600MG/300ML 300 ML IV SCH (16:09)
[2019-11-24] MEDS: HYDROCORTISONE SOD SUCC 100 MG/2ML INJ VIAL IV SCH ×2 (16:30→22:30)
[2019-11-24 17:14] LABS: BUN/Creatinine Ratio 17.6; Calcium 6.7 mg/dL (8.5-10.1); Potassium 5.3 mmol/L (3.5-5.1)
[2019-11-24] MEDS: PHENYLEPHRINE INJ 40 MG in SODIUM CHL 0.9% 250 ML IV SCH (20:00)
[2019-11-24] MEDS: ATORVASTATIN 20 MG TAB PO SCH (22:00)
[2019-11-24] MEDS: CLINDAMYCIN 600MG IV 50 ML IV SCH (22:30)
[2019-11-24] MEDS: PANTOPRAZOLE 40 MG/10 ML VIAL INJ IV SCH (22:30)
[2019-11-25] VITALS (106 sets, daily range): BP systolic 67–237; BP diastolic 26–248
[2019-11-25 00:38] LABS: Hemoglobin 10.5 g/dL (13.5-17.5)
[2019-11-25 00:39] LABS: Hematocrit 33.9 % (41.0-53.0); Mean Corpuscular Hemoglobin 27.3 pg (28.0-32.0); Mean Corpuscular Volume 88.3 fL (80.0-100.0); Platelet Count (auto) 212 10^3/uL (140-450); Red Blood Cells 3.84 10^6/uL (4.5-5.90); Red Cell Distribution Width 17.5 % (11.8-14.3); White Blood Cell 14.5 10^3/uL (4.4-10.8)
[2019-11-25 00:45] LABS: BUN/Creatinine Ratio 15.7; Calcium 6.8 mg/dL (8.5-10.1); Magnesium 2.6 mg/dL (1.6-2.6)
[2019-11-25 00:46] LABS: Basophils % (manual) 0 (0.0-2.0); Blast Cells 0; Eosinophils % (manual) 0 (0-7); Promyelocytes % 0; Reactive Lymphocytes 0
[2019-11-25 00:48] LABS: INR 1.34 (0.9-1.15); Lactic Acid w/Reflex 5.4 mmol/L (0.4-2.0); Partial Thromboplastin Time 50.6 sec (23.64-32.05)
[2019-11-25] MEDS ORDERED: SODIUM BICARBONATE 8.4% INJ 50ML SYRINGE ONE (00:55)
[2019-11-25] MEDS: MEROPENEM 500MG IVPB 50 ML IV SCH ×2 (01:00→11:50)
[2019-11-25] MEDS ORDERED: SODIUM BICARBONATE 8.4 % INJ 50ML VIAL IV ONE ×6 (01:00→09:00)
[2019-11-25] MEDS ORDERED: SODIUM BICARBONATE 50ML VIAL 100 ML in D5W/SOD CHL 0.45% 1,000 ML IV SCH (01:00)
[2019-11-25 01:11] LABS: Potassium 6.3 mmol/L (3.5-5.1)
[2019-11-25 01:17] LABS: Band Neutrophils % (manual) 17; Lymphocytes % (manual) 4 (10.0-50.0); Metamyelocytes % 4; Monocytes % (manual) 2 (0-12)
[2019-11-25 01:18] LABS: Myelocytes % 1
[2019-11-25] MEDS ORDERED: CALCIUM GLUC 4.65meq/50ml D5AE 50 ML IV ONE ×2 (01:45→09:15)
[2019-11-25] MEDS ORDERED: DEXTROSE (50%) 50ML SYRG IV ONE ×2 (01:45→09:15)
[2019-11-25] MEDS ORDERED: InsuLIN REG 1unit/0.01ml Soln (100units/ml) IV ONE ×2 (01:45→09:15)
[2019-11-25] MEDS ORDERED: FUROSEMIDE 100 MG/10ML VIAL IV ONE (01:45)
[2019-11-25] MEDS: LINEZOLID 600MG/300ML 300 ML IV SCH ×2 (03:00→13:00)
[2019-11-25] MEDS: MIDAZOLAM DRIP 50 mg/50mL 50 ML IV SCH (03:28)
[2019-11-25] MEDS ORDERED: SODIUM BICARBONATE 50ML VIAL 150 ML in D5W/SOD CHL 0.45% 1,000 ML IV SCH (04:00)
[2019-11-25] MEDS: FUROSEMIDE INJECTION 100 MG in D5W 5% 100 ML IV SCH (05:00)
[2019-11-25] MEDS: CLINDAMYCIN 600MG IV 50 ML IV SCH ×3 (06:00→22:01)
[2019-11-25] MEDS: EPINEPHrine HCL INJECTION 4 MG in SODIUM CHL 0.9% 250 ML IV SCH ×3 (06:00→18:14)
[2019-11-25] MEDS: HYDROCORTISONE SOD SUCC 100 MG/2ML INJ VIAL IV SCH ×3 (06:00→22:01)
[2019-11-25] MEDS: ALBUTEROL SULF 2.5 MG/0.5ML(0.5%) NEB SOLN NEB SCH ×3 (06:20→22:37)
[2019-11-25] MEDS: IPRATROPIUM BROM 0.5 MG/2.5ML INH SOL NEB SCH ×3 (06:20→22:37)
[2019-11-25] MEDS ORDERED: LEVOTHYROXINE SODIUM 100 MCG TAB PO SCH (07:00)
[2019-11-25 07:38] LABS: Lactic Acid w/Reflex 10.2 mmol/L (0.4-2.0)
[2019-11-25 07:52] LABS: Albumin 2.4 g/dL (3.4-5.0); Calcium 6.3 mg/dL (8.5-10.1)
[2019-11-25 07:53] LABS: Hematocrit 36.2 % (41.0-53.0); Hemoglobin 10.6 g/dL (13.5-17.5); Mean Corpuscular Hemoglobin 26.8 pg (28.0-32.0); Mean Corpuscular Hgb Conc. 29.4 g/dL (32.0-36.0); Platelet Count (auto) 191 10^3/uL (140-450); Red Blood Cells 3.97 10^6/uL (4.5-5.90); Red Cell Distribution Width 18.1 % (11.8-14.3); White Blood Cell 15.2 10^3/uL (4.4-10.8)
[2019-11-25 07:56] LABS: Basophils % (manual) 0 (0.0-2.0); Blast Cells 0; Eosinophils % (manual) 0 (0-7); Myelocytes % 0; Promyelocytes % 0; Reactive Lymphocytes 0
[2019-11-25 07:57] LABS: BUN/Creatinine Ratio 16.2; Bilirubin, Total 2.7 mg/dL (0.2-1.0); Total Protein 7.2 g/dL (6.4-8.2)
[2019-11-25 08:06] LABS: Potassium 6.5 mmol/L (3.5-5.1)
[2019-11-25 08:08] LABS: Band Neutrophils % (manual) 9; Lymphocytes % (manual) 4 (10.0-50.0); Metamyelocytes % 1; Monocytes % (manual) 6 (0-12)
[2019-11-25] MEDS: SODIUM BICARBONATE 50ML VIAL 150 ML in D5W 5% 1,000 ML IV SCH ×2 (09:08→18:00)
[2019-11-25] MEDS: AMIODARONE 450mg/250ml AE 250 ML IV SCH (09:24)
[2019-11-25] MEDS: DOCUSATE SOD 100 MG CAP PO SCH (09:27)
[2019-11-25] MEDS: ASCORBIC ACID 1,000 MG TAB PO SCH (09:27)
[2019-11-25] MEDS: ASPirin 81 mg TAB PO SCH (09:27)
[2019-11-25] MEDS: CLOPIDOGREL BISULFATE 75 MG TAB PO SCH (09:27)
[2019-11-25] MEDS: ZINC SULFATE 220mg CAP or TAB PO SCH (09:27)
[2019-11-25] MEDS: CHOLECALCIFEROL (VITD3) 1,000IU=25mCg TAB PO SCH (09:28)
[2019-11-25] MEDS: PANTOPRAZOLE 40 MG/10 ML VIAL INJ IV SCH ×2 (09:47→22:01)
[2019-11-25] MEDS: PHENYLEPHRINE INJ 40 MG in SODIUM CHL 0.9% 250 ML IV SCH ×3 (10:00→23:15)
[2019-11-25] MEDS ORDERED: ENOXAPARIN SOD 150 MG/1 ML SYRINGE SC SCH (10:00)
[2019-11-25] MEDS ORDERED: ALBUTEROL SULF 2.5 MG/0.5ML(0.5%) NEB SOLN NEB ONE (10:15)
[2019-11-25] MEDS: fentaNYL Drip 2500mCg/250mlNS 250 ML IV SCH (12:21)
[2019-11-25] MEDS: VASOPRESSIN 50 UNITS in D5W 5% 247.5 ML IV SCH (15:18)
[2019-11-25] MEDS ORDERED: PHENYLEPHRINE IV 250 ML IV ONE (15:29)
[2019-11-25] MEDS: NOREPINEPHRINE BITARTRATE 16 MG in SODIUM CHL 0.9% 250 ML IV SCH (16:00)
[2019-11-25] MEDS ORDERED: EPINEPHrine HCL 250 ML IV ONE (18:03)
[2019-11-25] MEDS: ATORVASTATIN 20 MG TAB PO SCH (22:00)
[2019-11-25] MEDS ORDERED: DOPamine 1600MCG/ML D5W 250 ML IV SCH (22:51)
[2019-11-26] VITALS: BP 77/28
[2019-11-26] MEDS: MEROPENEM 500MG IVPB 50 ML IV SCH
[2019-11-26] MEDS: NOREPINEPHRINE BITARTRATE 16 MG in SODIUM CHL 0.9% 250 ML IV SCH ×2
[2019-11-26 00:15] VITALS: BP_SYST 65; BP_SYST 66; BP_SYST 74; BP_DIAS 26; BP_DIAS 34
[2019-11-26] MEDS: AMIODARONE 450mg/250ml AE 250 ML IV SCH (00:24)
[2019-11-26 00:30] VITALS: BP_SYST 64; BP_SYST 71; BP_DIAS 26; BP_DIAS 34
[2019-11-26 00:45] VITALS: BP 61/21
[2019-11-26 01:00] VITALS: BP 17/12
[2019-11-26 10:28] LABS: Hepatitis A Ab IgM Negative; Hepatitis B Core IgM Negative; Hepatitis B Surface Antigen Negative (Negative); Hepatitis C Antibody Negative (Negative)
== END 2019-11-26 01:01 | disposition expired | DRG 871 ==
LOC: ER 19:02 → EDBD 19:02 → OVERFLOW 19:03 → ICU WEST 11-24 08:25
PROVIDERS: ADMIT Hospitalist; ATTEND Internal Medicine Nephrology
PROC: 03HY32Z Insertion of Monitoring Device into Upper Artery, Percutaneous Approach (ICD-10-PCS; principal; 2019-11-24)
PROC: 02HV33Z Insertion of Infusion Device into Superior Vena Cava, Percutaneous Approach (ICD-10-PCS; 2019-11-24)
PROC: 5A1945Z Respiratory Ventilation, 24-96 Consecutive Hours (ICD-10-PCS; 2019-11-24)
PROC: 0BH17EZ Insertion of Endotracheal Airway into Trachea, Via Natural or Artificial Opening (ICD-10-PCS; 2019-11-24)
DX: A41.9 Sepsis, unspecified organism (principal); R65.21 Severe sepsis with septic shock; I21.A1 Myocardial infarction type 2; I50.33 Acute on chronic diastolic (congestive) heart failure; J96.00 Acute respiratory failure, unspecified whether with hypoxia or hypercapnia; N17.0 Acute kidney failure with tubular necrosis; J15.6 Pneumonia due to other Gram-negative bacteria; L03.311 Cellulitis of abdominal wall; I48.92 Unspecified atrial flutter; D68.69 Other thrombophilia; E87.1 Hypo-osmolality and hyponatremia; I48.91 Unspecified atrial fibrillation; I16.0 Hypertensive urgency; D63.8 Anemia in other chronic diseases classified elsewhere; E03.9 Hypothyroidism, unspecified; E16.2 Hypoglycemia, unspecified; E66.01 Morbid (severe) obesity due to excess calories; E78.5 Hyperlipidemia, unspecified; E87.5 Hyperkalemia; I25.10 Atherosclerotic heart disease of native coronary artery without angina pectoris; Z03.818 Encounter for observation for suspected exposure to other biological agents ruled out; Z79.899 Other long term (current) drug therapy; Z90.49 Acquired absence of other specified parts of digestive tract; Z82.49 Family history of ischemic heart disease and other diseases of the circulatory system; Z80.0 Family history of malignant neoplasm of digestive organs; Z79.82 Long term (current) use of aspirin
CPT/HCPCS: 36415; 36600; 71045; 80048; 80053; 80061; 80074; 81001; 82040; 82550; 82728; 82805; 83520; 83605; 83735; 83880; 84100; 84439; 84443; 84484; 85007; 85027; 85379; 85610; 85730; 86038; 86141; 86160; 86225; 86256; 87040; 87070; 87077; 87081; 87086; 87186; 87205; 87278; 87804; 87880; 93005; 93306; 93971; 94002; 94003; 94640; 99291; C9113; G0378; J0171; J0330; J0610; J1815; J2185; J2250; J2543; J3490; J7060